=== PATIENT | female | born 1965 ===

== ENCOUNTER 2020-03-11 13:47 | Emergency (ER) | payer MEDICAID, OTHER ==
[2020-03-11] MEDS ORDERED: HYDROcodone/APAP 5/325 TABLET ONE (14:23)
[2020-03-11] MEDS ORDERED: HYDROcodone/APAP 5/325 TABLET PO ONE (14:30)
--- NOTE | 2020-03-11 15:00 | NUR ---
DRESSED PER NINOSKA ABLE BODIED WATCHMAN WITH ADAPTIC AND ABDOMINAL PADS. PT TO SEE ROVING FRAME TENDER TOMORROW.
[2020-03-11 15:41] VITALS: BP 141/89
== END 2020-03-11 15:44 | disposition home or self-care (01) ==
LOC: ED 15:33
DX: Z48.01 Encounter for change or removal of surgical wound dressing (principal); Z85.3 Personal history of malignant neoplasm of breast
CPT/HCPCS: 99283